=== PATIENT | male | born 1970 | race Caucasian/White ===

== ENCOUNTER 2016-09-11 20:13 | Emergency (ER) | payer SELFPAY ==
[~2016-09-11] VITALS: Ht 175.3 cm; Wt 83.1 kg
[~2016-09-11 20:13] MED LIST: BACT800T5 PO; DOXY100C PO
[2016-09-11 20:42] VITALS: BP 113/74; PULSE 67; RESP 16; TEMP 98.4; O2SAT 96
[2016-09-11] MEDS ORDERED: LIDOCAINE HCL 1% 50 ML VIAL INFIL ONE (21:30)
--- NOTE | 2016-09-11 21:34 | PD ---
HPI Chief Complaint: Foreign Body Time Seen by Provider: 21:20 Travel History International Travel<30 days: No Contact w/Intl Traveler<30days: No Traveled to known affect area: No History of Present Illness HPI 46yo M with no PMH presents to the ED with c/o fish hook stuck in the left lower back today. His friend was fishing and accidentally got the fish hook stuck on his lower back Denies any other symptoms including fever, chest pain, sob, n/v, abdominal pain, weakness or numbness. Pt is up to date on tetanus. PFSH Past Medical History Medical History: Denies Significant Hx Diminished Hearing: No Tetanus Vaccination: < 5 Years Influenza Vaccination: No Past Surgical History Surgical History: No Previous Surgery Social History Alcohol Use: No Tobacco Use: No (Cigars daily) Substance Use: No Allergies-Medications (Allergen,Severity, Reaction): Coded Allergies: No Known Allergies (Unverified , 09/11/16) Reported Meds & Prescriptions Reported Meds & Active Scripts Active No Active Prescriptions or Reported Medications Review of Systems Except as stated in HPI: all other systems reviewed are Neg Physical Exam Narrative GENERAL: 46yo M not in distress. SKIN: Warm and dry. HEAD: Atraumatic. Normocephalic. CARDIOVASCULAR: Regular rate and rhythm. No murmur appreciated. RESPIRATORY: No accessory muscle use. Clear to auscultation. Breath sounds equal bilaterally. GASTROINTESTINAL: Abdomen soft, non-tender, nondistended. BACK: +Fish hook with tito wire in left lower back. MUSCULOSKELETAL: No obvious deformities. No clubbing. No cyanosis. No edema. NEUROLOGICAL: Awake and alert. No obvious cranial nerve deficits. Motor grossly within normal limits. Normal speech. PSYCHIATRIC: Appropriate mood and affect; insight and judgment normal. Data Data Last Documented VS Vital Signs Date Time Temp Pulse Resp B/P Pulse Ox O2 Delivery O2 Flow Rate FiO2 09/11/16 20:42 98.4 67 16 113/74 96 Room Air Orders Lidocaine 1% Inj (50 Ml) (Xylocaine 1% I (09/11/16 21:30) MDM Medical Decision Making Medical Screen Exam Complete: Yes Emergency Medical Condition: Yes Differential Diagnosis Foreign body in lower back Narrative Course 46yo M with a fish hook that has 3 hooks with tito wire and one of those hook is in his left lower back. I was able to remove foreign body by numbing the area with lidocaine and then cutting the 2 hooks and push the imbedded fish hook through the skin and cutting the tito wire when it was exposed and then retracting the imbedded fish hook. Pt is up to date on tetanus. Puncture wound was cleaned and covered with steri strips. Return precautions given. Procedures Procedure Narrative Foreign body removal: Fish hook removal from back. Pt was anesthesized with 3cc of 1% lidocaine. I cut the 2 hooks with heavy duty pin cutter and push the imbedded fish hook through the skin and cut the tito wire when it was exposed and then retracting the imbedded fish hook in opposite direction. Puncture wound was cleaned and covered with steri strips Diagnosis Primary Impression: Foreign body of skin of back Qualified Code: S30.850A - Foreign body of skin of back, initial encounter Patient Instructions: General Instructions Departure Forms: Tests/Procedures Additional Instructions: Please follow up with your PMD in 3-7 days. Return to the ED if symptoms worsen. Med/Other Pt SpecificInfo: Prescription(s) given Scripts Cephalexin (Keflex)500 Mg [id number] Mg PO Q12H 7 Days Ref 0 Prov:Fatemeh Jackson DO 09/11/16 Disposition: 01 DISCHARGE HOME Condition: Stable Fatemeh Jackson DO Sep 11, 2016 21:34
[2016-09-11] MEDS ORDERED: CEPH-460 PO (22:19)
== END 2016-09-11 22:20 | disposition home or self-care (01) ==
LOC: PHED 20:13 → PHEFT 22:20
DX: S31.040A Puncture wound with foreign body of lower back and pelvis without penetration into retroperitoneum, initial encounter (principal); W45.8XXA Other foreign body or object entering through skin, initial encounter; Y93.89 Activity, other specified; Y92.9 Unspecified place or not applicable
CPT/HCPCS: 10120

== ENCOUNTER 2016-10-31 12:52 | Emergency (ER) | payer SELFPAY ==
[~2016-10-31] VITALS: Ht 175.3 cm; Wt 79.0 kg
[~2016-10-31 12:52] MED LIST changes: -BACT800T5 PO; +CEPH-460 PO; -DOXY100C PO
[2016-10-31 12:57] VITALS: BP 140/87; PULSE 63; RESP 19; TEMP 98.4; O2SAT 97
[2016-10-31] MEDS ORDERED: SODIUM CHLORIDE 0.9% FLUSH 10 ML FLUSH IVF PRN (13:15)
[2016-10-31] MEDS ORDERED: SODIUM CHLOR 0.9% 1000 ML INJ 1,000 ML IV ONE (13:15)
--- NOTE | 2016-10-31 13:38 | PD ---
HPI Chief Complaint: Anxiety Time Seen by Provider: 12:56 Travel History International Travel<30 days: No Contact w/Intl Traveler<30days: No Traveled to known affect area: No History of Present Illness HPI This is a 46-year-old man who presents emergency department complaining of some shortness of breath. 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 They were using fabrication machine operator air. He went to the bathroom when he came back he drank some Gatorade. Shortly thereafter began to feel bloated in his abdomen, began to feel headache, lightheaded, alternating hot and cold symptoms. He also then began to get some shortness of breath. He had some blurry vision. His never had symptoms like this before. He otherwise has been feeling generally well and healthy. Only medical history is borderline diabetes. He smokes cigars but no other tobacco use, no history of lung disease. No history of DVT or PE. His right leg he's had some intermittent swollen veins and some fullness in for the past several months he attributes to playing Frisbee golf. He also has noticed that over the past couple months she's been more jittery and anxious especially in the mornings when he first wakes up before he goes to bed. He has no history of anxiety. His grandmother just in the past week. He otherwise has been feeling generally well and healthy. No other complaints. History Past Medical History Narrative Medical Borderline diabetes Cigar use Social History Alcohol Use: No Tobacco Use: No (Cigars daily) Allergies-Medications (Allergen,Severity, Reaction): Coded Allergies: No Known Allergies (Unverified , 09/11/16) Reported Meds & Prescriptions Reported Meds & Active Scripts Active Keflex (Cephalexin) 500 Mg Cap 500 Mg PO Q12H 7 Days Review of Systems Except as stated in HPI: all other systems reviewed are Neg Physical Exam Narrative GENERAL: Well-appearing 46-year-old man, no acute distress. SKIN: Focused skin assessment warm/dry. HEAD: Atraumatic. Normocephalic. CARDIOVASCULAR: Regular rate and rhythm. No murmur appreciated. RESPIRATORY: No accessory muscle use. Clear to auscultation. Breath sounds equal bilaterally. GASTROINTESTINAL: Abdomen soft, non-tender, nondistended. Hepatic and splenic margins not palpable. MUSCULOSKELETAL: No obvious deformities. No clubbing. No cyanosis. No edema. NEUROLOGICAL: Awake and alert. No obvious cranial nerve deficits. Motor grossly within normal limits. Normal speech. PSYCHIATRIC: Appropriate mood and affect; insight and judgment normal. Data Data Last Documented VS Vital Signs Date Time Temp Pulse Resp B/P Pulse Ox O2 Delivery O2 Flow Rate FiO2 10/31/16 13:57 99 Room Air 10/31/16 12:57 98.4 63 19 140/87 Orders Complete Blood Count With Diff (10/31/16 13:06) Comprehensive Metabolic Panel (10/31/16 13:06) D-Dimer (10/31/16 13:06) Troponin I (10/31/16 13:06) Iv Access Insert/Monitor (10/31/16 13:06) Electrocardiogram (10/31/16 13:06) Ecg Monitoring (10/31/16 13:06) Oximetry (10/31/16 13:06) Oxygen Administration (10/31/16 13:06) Chest, Pa & Lat (10/31/16 13:06) Sodium Chloride 0.9% Flush (Ns Flush) (10/31/16 13:15) Sodium Chlor 0.9% 1000 Ml Inj (Ns 1000 M (10/31/16 13:15) Labs Laboratory Tests Test 10/31/16 13:10 White Blood Count 10.1 TH/MM3 Red Blood Count 4.95 MIL/MM3 Hemoglobin 14.1 GM/DL Hematocrit 42.0 % Mean Corpuscular Volume 85.0 FL Mean Corpuscular Hemoglobin 28.5 PG Mean Corpuscular Hemoglobin 33.5 % Concent Red Cell Distribution Width 13.4 % Platelet Count 217 TH/MM3 Mean Platelet Volume 9.7 FL Neutrophils (%) (Auto) 76.0 % Lymphocytes (%) (Auto) 17.5 % Monocytes (%) (Auto) 5.5 % Eosinophils (%) (Auto) 0.6 % Basophils (%) (Auto) 0.4 % Neutrophils # (Auto) 7.7 TH/MM3 Lymphocytes # (Auto) 1.8 TH/MM3 Monocytes # (Auto) 0.6 TH/MM3 Eosinophils # (Auto) 0.1 TH/MM3 Basophils # (Auto) 0.0 TH/MM3 CBC Comment DIFF FINAL Differential Comment D-Dimer Quantitative (PE/DVT) 0.26 MG/L FEU Sodium Level 139 MEQ/L Potassium Level 3.6 MEQ/L Chloride Level 108 MEQ/L Carbon Dioxide Level 24.1 MEQ/L Anion Gap 7 MEQ/L Blood Urea Nitrogen 15 MG/DL Creatinine 0.93 MG/DL Estimat Glomerular Filtration 87 ML/MIN Rate Random Glucose 94 MG/DL Calcium Level 8.7 MG/DL Total Bilirubin 0.5 MG/DL Aspartate Amino Transf 15 U/L (AST/SGOT) Alanine Aminotransferase 18 U/L (ALT/SGPT) Alkaline Phosphatase 80 U/L Troponin I 0.02 NG/ML Total Protein 7.4 GM/DL Albumin 4.0 GM/DL [facility] Medical Decision Making Medical Screen Exam Complete: Yes Emergency Medical Condition: Yes Interpretation(s) My review of EKG: Sinus bradycardia rate of 55, normal axis, normal intervals, no acute ischemia. LABS: CBC unremarkable. CMP unremarkable. Troponin negative. D-dimer negative. Chest x-ray negative Differential Diagnosis Weakness, anxiety, ACS, PE, exposure to chemical irritant, other Narrative Course Medical decision making Is a 46-year-old man who presents to the emergency department complaining of usual episode of shortness of breath come for a vision, hot cold symptoms, lightheadedness, this seems to represent likely some element of anxiety or hyperventilation. He has some unusual symptoms and this one leg that is been ongoing for the past month or 2 that could be indicative of a DVT although this seems less likely. However given this, we'll check d-dimer. We will also check x-ray, we'll check EKG and troponin. I suspect these will be normal and patient will follow up as an outpatient if symptoms persist. Diagnosis Primary Impression: Shortness of breath Additional Instructions: Follow-up with your primary doctor in the next 2-4 days if you're not feeling completely well. Return to the emergency department for any new or worsening symptoms. Med/Other Pt SpecificInfo: No Change to Meds Disposition: 01 DISCHARGE HOME Condition: Stable Shayan Guillen MD October 31, 2016 13:38
[2016-10-31 13:57] VITALS: O2SAT 99
--- NOTE | 2016-10-31 13:59 | RADRPT ---
EXAM DATE/TIME: 10/31/2016 13:34 [facility] COMPARISON: CHEST PA & LAT, May 05, 2014, 11:02. INDICATIONS : Shortness of breath today. Patient stated he has been unable to catch his breath all day. MEDICAL HISTORY : None. SURGICAL HISTORY : None. ENCOUNTER: Initial ACUITY: 1 day PAIN SCORE: 0/10 LOCATION: Bilateral chest FINDINGS: PA and lateral views of the chest demonstrate the lungs to be symmetrically aerated without evidence of mass, infiltrate or effusion. The cardiomediastinal contours are unremarkable. Osseous structure s are intact. CONCLUSION: No acute disease. Triston Brown MD on October 31, 2016 at 13:56 Board Certified Radiologist. This report was verified electronically.
[2016-10-31 14:08] LABS: AUTOMATED NEUTROPHIL # 7.7 TH/MM3 (1.8-7.7); BASOPHIL % 0.4 % (0.0-2.0); EOSINOPHIL # 0.1 TH/MM3 (0-0.4); EOSINOPHIL % 0.6 % (0.0-4.0); HEMO FLAGS DIFF FINAL; LYMPH % 17.5 % (9.0-44.0); LYMPHOCYTE # 1.8 TH/MM3 (1.0-4.8); MEAN CORPUSCULAR HEMOGLOBIN 28.5 PG (27.0-34.0); MEAN CORPUSCULAR HGB CONC 33.5 % (32.0-36.0); MONO % 5.5 % (0.0-8.0); PLATELET COUNT 217 TH/MM3 (150-450); RED BLOOD COUNT 4.95 MIL/MM3 (4.50-5.90); RED CELL DISTRIBUTION WIDTH 13.4 % (11.6-17.2); WHITE BLOOD COUNT 10.1 TH/MM3 (4.0-11.0)
[2016-10-31 14:27] LABS: ALT (GPT) 18 U/L (12-78); ANION GAP 7 MEQ/L (5-15); AST (GOT) 15 U/L (15-37); BICARBONATE 24.1 MEQ/L (21.0-32.0); BLOOD UREA NITROGEN 15 MG/DL (7-18); CHLORIDE 108 MEQ/L (98-107); GLOMERULAR FILTRATION RATE 87 ML/MIN (>89); POTASSIUM 3.6 MEQ/L (3.5-5.1); SODIUM (NA) 139 MEQ/L (136-145)
[2016-10-31 14:31] LABS: ALKALINE PHOSPHATASE 80 U/L (45-117); TOTAL BILIRUBIN ADULT 0.5 MG/DL (0.2-1.0)
[2016-10-31 15:08] VITALS: BP 124/77
--- NOTE | 2016-11-01 09:16 | EKG ---
Date Performed: 10/31/2016 Time Performed: 13:51:31 PTAGE: 46 years EKG: SINUS BRADYCARDIA POSSIBLE RIGHT VENTRICULAR CONDUCTION DELAY BORDERLINE ECG PREVIOUS TRACING : 05/05/2014 10.22 DOCTOR: Shayan Dickey Interpretating Date/Time 11/01/2016 09:16:00
== END 2016-10-31 15:33 | disposition home or self-care (01) ==
LOC: NEPE 12:52
DX: R06.02 Shortness of breath (principal); R51 Headache; R42 Dizziness and giddiness; H53.8 Other visual disturbances; R94.31 Abnormal electrocardiogram [ECG] [EKG]; R73.03 Prediabetes; Z72.0 Tobacco use
CPT/HCPCS: 71020; 80053; 84484; 85025; 85379; 93005; 96360; 99285; J7030

== ENCOUNTER 2017-10-18 07:07 | Emergency (ER) | payer OTHER ==
[~2017-10-18] VITALS: Ht 175.3 cm; Wt 84.2 kg
[2017-10-18 07:16] VITALS: BP 133/84; PULSE 70; RESP 16; TEMP 98.6; O2SAT 98
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
== END 2017-10-18 08:08 | disposition home or self-care (01) ==
LOC: PHED 07:07
DX: H57.8 Other specified disorders of eye and adnexa (principal); R09.89 Other specified symptoms and signs involving the circulatory and respiratory systems; L29.9 Pruritus, unspecified; X08.8XXA Exposure to other specified smoke, fire and flames, initial encounter; F17.290 Nicotine dependence, other tobacco product, uncomplicated
CPT/HCPCS: 99281